=== PATIENT | female | born 1970 ===

== ENCOUNTER 2018-12-26 16:18 | Emergency (ER) | payer OTHER, SELFPAY ==
[2018-12-26 17:29] VITALS: RESP 18
[2018-12-26] MEDS ORDERED: Albuterol-Ipratrop 3 mg / 0.5 (3 ml) UD INH STA (18:47)
[2018-12-26] MEDS ORDERED: Albuterol-Ipratrop 3 mg / 0.5 (3 ml) UD ONE (18:55)
--- NOTE | 2018-12-26 19:08 | ED PDOC ---
HPI: CCC, URI, Sore Throat Time Seen by Provider: 12/26/18 17:49 Chief Complaint (Nursing): Cough, Cold, Congestion Chief Complaint (Provider): Cough History Per: Patient History/Exam Limitations: no limitations Onset/Duration Of Symptoms: Days (x1 week) Current Symptoms Are (Timing): Still Present Associated Symptoms: Sore Throat, Cough. denies: Fever, Chills, Nausea, Vomiting Additional Complaint(s): Raquel Cisneros is a 48 year old female, with a past medical history of asthma, who presents to the emergency department complaining of cough and sore throat onset for x1 week. Patient states she has been taking Mucinex and Robitussin with minimal improvement in the ability to cough up phlegm. Patient has also been using albuterol inhaler at home. She reports sore throat went away several days ago and also had some left ear pain but has since resolved. She denies any fever, chills, night sweats, nausea, vomit or other medical complaints. PMD: None provided. Past Medical History Reviewed: Historical Data, Nursing Documentation, Vital Signs Vital Signs: Last Vital Signs Temp 97.4 F L 12/26/18 17:25 Pulse 56 L 12/26/18 17:25 Resp 18 12/26/18 17:25 BP 122/70 12/26/18 17:25 Pulse Ox 100 12/26/18 17:25 - Medical History PMH: Anxiety, Asthma, Bronchitis, Depression, Hypothyroidism - Surgical History Surgical History: (x3) - Family History Family History: States: Diabetes, Hypertension - Social History Current smoker - smoking cessation education provided: No Alcohol: None Drugs: Denies - Home Medications Home Medications: Ambulatory Orders Medication Instructions Recorded Levothyroxine Sodium 0.112 mg PO DAILY 12/16/14 Prednisone 40 mg PO DAILY #10 tab 04/29/15 Sertraline HCl [Zoloft] 50 mg PO 04/29/15 Amoxicillin/Clavulanate [Augmentin 1 tab PO BID #14 tab 12/03/16 875 MG-125 MG] predniSONE [Prednisone] 10 mg PO BID #10 tab 12/03/16 Albuterol 0.042% [Albuterol 0.042% 3 ml IH Q6 PRN 7 Days janelle 12/26/18 Inhal Janelle (1.25mg/3ml) UD] Benzonatate [Tessalon Perles] 100 mg PO BID 7 Days sgl 12/26/18 Fluticasone Nasal [Flonase] 1 spr NS BID PRN 5 Days spr 12/26/18 Nebulizer Accessories [Reusable 1 each MC ONCE #1 kit 12/26/18 Nebulizer Kit] Nebulizer [Aeroneb Go Nebulizer] 1 each MC Q6 PRN #1 each 12/26/18 - Allergies Allergies/Adverse Reactions: Allergies Allergy/AdvReac Type Severity Reaction Status Date / Time acetaminophen [From Percocet] Allergy SHORTNESS Verified 12/03/16 12:39 OF BREATH oxycodone HCl [From Percocet] Allergy SHORTNESS Verified 12/03/16 12:39 OF BREATH Fruits Allergy URTICARIA Uncoded 12/03/16 12:39 Nuts Allergy URTICARIA Uncoded 12/03/16 12:39 Review of Systems ROS Statement: Except As Marked, All Systems Reviewed And Found Negative Constitutional: Negative for: Fever, Chills, Sweats ENT: Positive for: Throat Pain (resolved) Respiratory: Positive for: Cough Gastrointestinal: Negative for: Nausea, Vomiting Physical Exam - Reviewed Nursing Documentation Reviewed: Yes Vital Signs Reviewed: Yes - Physical Exam Appears: Positive for: No Acute Distress Head Exam: Positive for: ATRAUMATIC, NORMAL INSPECTION, NORMOCEPHALIC Skin: Positive for: Normal Color, Warm, Dry Eye Exam: Positive for: Normal appearance, EOMI, PERRL ENT: Positive for: TM Is/Are (Left TM obscured by wax.), Pharyngeal Erythema (mild) Neck: Positive for: Normal, Painless ROM Cardiovascular/Chest: Positive for: Regular Rate, Rhythm. Negative for: Murmur Respiratory: Positive for: Normal Breath Sounds. Negative for: Respiratory Distress Extremity: Positive for: Normal ROM (upper and lower extremities). Negative for: Deformity, Swelling Neurologic/Psych: Positive for: Alert, Oriented. Negative for: Motor/Sensory Deficits - ECG O2 Sat by Pulse Oximetry: 100 (RA) Pulse Ox Interpretation: Normal Medical Decision Making Medical Decision Making: Time: 17:49 Initial Impression: Cough Initial Plan: --Chest two views (PA/LAT) [RAD] --Duoneb 3 ml INH --Reevaluation 20:10 -CXR read by provider, no acute pathology noted. Patient reports feeling better and requires no further treatment in the ED at this time. Patient is medically stable for discharge home. Return precautions given. ----- Scribe Attestation: Documented by Johnnie Hogue, acting as a scribe for Morena Hernandez PA-C. Provider Scribe Attestation: All medical record entries made by the Scribe were at my direction and personally dictated by me. I have reviewed the chart and agree that the record accurately reflects my personal performance of the history, physical exam, medical decision making, and the department course for this patient. I have also personally directed, reviewed, and agree with the discharge instructions and disposition. Disposition - Clinical Impression Clinical Impression: URI (upper respiratory infection) - Disposition Referrals: [facility] [Outside] Disposition: Routine/Home Disposition Time: 20:10 Condition: STABLE Additional Instructions: Take Tessalon pearls and use nebulizer for cough. Use Flonase for nasal congestion. Return to ER if you develop shortness of breath. Take Tylenol or Ibuprofen for pain. F/u with your primary care physician for routine evaluation. Prescriptions: Albuterol 0.042% [Albuterol 0.042% Inhal Janelle (1.25mg/3ml) UD] 3 ml IH Q6 PRN 7 Days janelle PRN Reason: Cough Benzonatate [Tessalon Perles] 100 mg PO BID 7 Days sgl Fluticasone Nasal [Flonase] 1 spr NS BID PRN 5 Days spr PRN Reason: Nasal Congestion Nebulizer [Aeroneb Go Nebulizer] 1 each MC Q6 PRN #1 each PRN Reason: Cough And Congestion Nebulizer Accessories [Reusable Nebulizer Kit] 1 each MC ONCE #1 kit Forms: [employer] (Romanian)
[2018-12-26 20:21] VITALS: BP 100/52; PULSE 63; TEMP 98.1; O2SAT 98
--- NOTE | 2018-12-27 08:56 | RAD ---
Date of service: 12/26/2018 HISTORY: shortness of breath, cough COMPARISON: Chest radiographs 12/16/2014. TECHNIQUE: Chest PA and lateral FINDINGS: LUNGS: No active pulmonary disease. PLEURA: No significant pleural effusion identified. No pneumothorax apparent. CARDIOVASCULAR: No aortic atherosclerotic calcification present. Normal cardiac size. No pulmonary vascular congestion. OSSEOUS STRUCTURES: No significant abnormalities. VISUALIZED UPPER ABDOMEN: Normal. OTHER FINDINGS: None. IMPRESSION: No interval acute cardiopulmonary disease appreciated.
== END 2018-12-26 20:22 | disposition home or self-care (01) ==
LOC: H.ER 16:18
DX: J06.9 Acute upper respiratory infection, unspecified (principal)

== ENCOUNTER 2019-03-04 08:04 | Emergency (ER) | payer SELFPAY ==
[2019-03-04 08:06] VITALS: BMI 25.0
[2019-03-04 08:18] VITALS: O2SAT 98
--- NOTE | 2019-03-04 08:47 | ED PDOC ---
HPI: CCC, URI, Sore Throat Time Seen by Provider: 03/04/19 08:25 Chief Complaint (Nursing): ENT Problem Chief Complaint (Provider): ENT Problem History Per: Patient History/Exam Limitations: no limitations Onset/Duration Of Symptoms: Sudden Onset Current Symptoms Are (Timing): Better Location Of Pain: Throat Additional Complaint(s): 48 year old female with medical history of asthma and thyroid disease, presents to the emergency department with a complaint of sore throat with white patches and mild headache since waking up this morning. Patient states she was well last night and took Advil around 0700 this morning for relief. She reports having prior history of strep infections, in which, she usually takes a Zpack. Otherwise, she denies abdominal pain, cough, runny nose, congestion, nausea, vomiting, diarrhea, leg pain or swelling. PCP: none provided Past Medical History Reviewed: Historical Data, Nursing Documentation, Vital Signs Vital Signs: Last Vital Signs Temp 100.1 F H 03/04/19 08:06 Pulse 76 03/04/19 08:06 Resp 17 03/04/19 08:06 BP 99/63 L 03/04/19 08:06 Pulse Ox 98 03/04/19 08:16 - Medical History PMH: Anxiety, Asthma, Bronchitis, Depression, Hypothyroidism - Surgical History Surgical History: (x3) - Family History Family History: States: Diabetes, Hypertension - Home Medications Home Medications: Ambulatory Orders Medication Instructions Recorded Levothyroxine Sodium 0.112 mg PO DAILY 12/16/14 Prednisone 40 mg PO DAILY #10 tab 04/29/15 Sertraline HCl [Zoloft] 50 mg PO 04/29/15 Amoxicillin/Clavulanate [Augmentin 1 tab PO BID #14 tab 12/03/16 875 MG-125 MG] predniSONE [Prednisone] 10 mg PO BID #10 tab 12/03/16 Albuterol 0.042% [Albuterol 0.042% 3 ml IH Q6 PRN 7 Days elenita 12/26/18 Inhal Elenita (1.25mg/3ml) UD] Benzonatate [Tessalon Perles] 100 mg PO BID 7 Days sgl 12/26/18 Fluticasone Nasal [Flonase] 1 spr NS BID PRN 5 Days spr 12/26/18 Nebulizer Accessories [Reusable 1 each MC ONCE #1 kit 12/26/18 Nebulizer Kit] Nebulizer [Aeroneb Go Nebulizer] 1 each MC Q6 PRN #1 each 12/26/18 Azithromycin [Zithromax] 500 mg PO DAILY 5 Days tab 03/04/19 Ibuprofen [Motrin] 600 mg PO TID 7 Days tab 03/04/19 - Allergies Allergies/Adverse Reactions: Allergies Allergy/AdvReac Type Severity Reaction Status Date / Time acetaminophen [From Percocet] Allergy SHORTNESS Verified 03/04/19 08:16 OF BREATH oxycodone HCl [From Percocet] Allergy SHORTNESS Verified 03/04/19 08:16 OF BREATH Fruits Allergy URTICARIA Uncoded 03/04/19 08:16 Nuts Allergy URTICARIA Uncoded 03/04/19 08:16 Review of Systems ROS Statement: Except As Marked, All Systems Reviewed And Found Negative ENT: Positive for: Throat Pain (with white patches). Negative for: Nose Discharge, Nose Congestion Cardiovascular: Negative for: Chest Pain Respiratory: Negative for: Cough, Shortness of Breath Gastrointestinal: Negative for: Nausea, Vomiting, Abdominal Pain, Diarrhea Musculoskeletal: Negative for: Leg Pain (or swelling) Neurological: Positive for: Headache Physical Exam - Reviewed Nursing Documentation Reviewed: Yes Vital Signs Reviewed: Yes - Physical Exam Appears: Positive for: Well, Non-toxic, No Acute Distress Head Exam: Positive for: ATRAUMATIC, NORMAL INSPECTION, NORMOCEPHALIC Skin: Positive for: Normal Color. Negative for: Rash Eye Exam: Positive for: Normal appearance, EOMI, PERRL ENT: Positive for: TM Is/Are (clear bilaterally), Pharyngeal Erythema (mildly on bilateral tonsils). Negative for: Nasal Congestion, Tonsillar Exudate, Tonsillar Swelling Neck: Positive for: Normal, Supple Cardiovascular/Chest: Positive for: Regular Rate, Rhythm Respiratory: Positive for: Normal Breath Sounds. Negative for: Wheezing, Respiratory Distress Neurological/Psych: Positive for: Awake, Alert, Normal Tone, Oriented. Negative for: Lethargic, Motor/Sensory Deficits - Laboratory Results Lab Results: strep pos - ECG O2 Sat by Pulse Oximetry: 98 (RA) Pulse Ox Interpretation: Normal - Progress ED Course And Treament: 945: Stable. AAOx3. Pain free. Tolerated PO. Rx zithromax as pt. states that works. Medical Decision Making Medical Decision Making: Time: 824 Initial Plan: * Motrin PO * Rapid strep Scribe Attestation: Documented by Jessica Duran, acting as a scribe for Delonte Connors MD. Provider Scribe Attestation: All medical record entries made by the Scribe were at my direction and personally dictated by me. I have reviewed the chart and agree that the record accurately reflects my personal performance of the history, physical exam, medical decision making, and the department course for this patient. I have also personally directed, reviewed, and agree with the discharge instructions and disposition. Disposition - Clinical Impression Clinical Impression: Pharyngitis - Patient ED Disposition Is Patient to be Admitted: No Counseled Patient/Family Regarding: Studies Performed, Diagnosis, Need For Followup, Rx Given - Disposition Referrals: [facility] [Outside] - 03/06/19 Disposition: Routine/Home Disposition Time: 09:00 Condition: STABLE Additional Instructions: Return if not better in 3 days. Prescriptions: Azithromycin [Zithromax] 500 mg PO DAILY 5 Days tab Ibuprofen [Motrin] 600 mg PO TID 7 Days tab Instructions: Strep Throat (DC) Forms: [employer] ED School/Work Excuse, [employer] (Hungarian)
[2019-03-04 10:37] VITALS: BP 100/70; PULSE 72; RESP 18; TEMP 98.9
== END 2019-03-04 10:20 | disposition home or self-care (01) ==
LOC: H.ER 08:04
DX: J02.9 Acute pharyngitis, unspecified (principal); Z86.59 Personal history of other mental and behavioral disorders; J45.909 Unspecified asthma, uncomplicated; Z88.5 Allergy status to narcotic agent